=== PATIENT | male | born 1965 | race Caucasian/White ===

== ENCOUNTER 2023-03-17 13:09 | Emergency (ER) | payer BC ==
[~2023-03-17] VITALS: Ht 167.6 cm; Wt 100.0 kg
[2023-03-17] MEDS ORDERED: cefTRIAXone SODIUM 1 GM/VIAL SDV IM ONE (15:35)
[2023-03-17] MEDS ORDERED: LIDOcaine HCl 1% (Local Anesth.) 20 ML VIAL IM STA (15:35)
[2023-03-17] MEDS ORDERED: KEFLEX500 MG PO (15:55)
== END 2023-03-17 16:30 | disposition home or self-care (01) | DRG 914 ==
LOC: ED 13:09
DX: S91.341A Puncture wound with foreign body, right foot, initial encounter (principal); L03.115 Cellulitis of right lower limb; W27.3XXA Contact with needle (sewing), initial encounter; Y92.009 Unspecified place in unspecified non-institutional (private) residence as the place of occurrence of the external cause

== ENCOUNTER 2023-03-23 09:52 | Day surgery (SDC) | payer BC ==
[~2023-03-23] VITALS: Ht 167.6 cm; Wt 98.9 kg
[~2023-03-23 09:52] MED LIST: KEFLEX500 MG PO
[2023-03-23] MEDS ORDERED: ceFAZolin Sodium 2 GM/VIAL SDV ONE (10:04)
[2023-03-23] MEDS ORDERED: FAMOTIDINE 10MG/ML 2ML SDV IV ONE (10:04)
[2023-03-23] MEDS ORDERED: SODIUM CHLORIDE 0.9% 100 ML IV ONE (10:05)
[2023-03-23] MEDS ORDERED: LACTATED RINGER'S 1,000 ML IV ONE (10:05)
[2023-03-23] MEDS ORDERED: TYLENOL500 MG PO (10:14)
[2023-03-23] MEDS ORDERED: MOTRIN400 MG/TAB PO (10:15)
[2023-03-23] MEDS ORDERED: BUPIVACAINE HCL PF 0.5% 30 ML VIAL ONE (10:37)
[2023-03-23 12:57] VITALS: BP 155/82
[2023-03-23] MEDS ORDERED: PROPOFOL 200 MG/20 ML VIAL IV ONE (13:57)
[2023-03-23] MEDS ORDERED: MIDAZOLAM HCL 2 MG/2 ML VIAL IV ONE (13:57)
== END 2023-03-23 13:08 | disposition home or self-care (01) | DRG 908 ==
LOC: ORM 09:52
PROVIDERS: ATTEND Podiatrist Foot & Ankle Surgery
PROC: 0SCM0ZZ Extirpation of Matter from Right Metatarsal-Phalangeal Joint, Open Approach (ICD-10-PCS; principal; 2023-03-23)
PROC: 0SBM0ZZ Excision of Right Metatarsal-Phalangeal Joint, Open Approach (ICD-10-PCS; 2023-03-23)
DX: S91.341A Puncture wound with foreign body, right foot, initial encounter (principal); L03.115 Cellulitis of right lower limb; M65.171 Other infective (teno)synovitis, right ankle and foot; W27.3XXA Contact with needle (sewing), initial encounter
CPT/HCPCS: J0690